=== PATIENT | female | born 1985 | race Two or more races ===

== ENCOUNTER 2020-03-23 13:24 | Outpatient (CLI) | payer OTHER | END 2020-03-23 13:37 | disposition home or self-care (01) | LOC: LAB 13:24 | PROVIDERS: ATTEND Surgery | DX: Z20.828 Contact with and (suspected) exposure to other viral communicable diseases (principal); Z03.818 Encounter for observation for suspected exposure to other biological agents ruled out ==

== ENCOUNTER 2021-01-18 21:25 | Emergency (ER) | payer OTHER ==
[~2021-01-18] VITALS: Ht 152.4 cm; Wt 96.2 kg
== END 2021-01-18 23:27 | disposition home or self-care (01) ==
LOC: ER 21:25
DX: O20.0 Threatened abortion (principal)